=== PATIENT | female | born 1950 | race Caucasian/White ===

== ENCOUNTER 2018-07-08 18:56 | Emergency (ER) | payer MEDICARE, BC ==
[2018-07-08 19:18] VITALS: BP 149/86
--- NOTE | 2018-07-08 19:52 | EDM.PDOC ---
ED HPI GENERAL MEDICAL PROBLEM - General Chief Complaint: ENT Problem Stated Complaint: swelling to throat Time Seen by Provider: 07/08/18 19:52 - History of Present Illness INITIAL COMMENTS - FREE TEXT/NARRATIVE: 67-year-old female presents emergency room with a throat fullness. Patient is had problems with this for the last couple weeks. Patient has been cleaning the house with a lot of dust. This is thought to be contributing the patient also has underlying [place]'s esophagus is Sjogren's syndrome. Her last EEG was in March of this last year and they thought it looked good enough to put off surveillance EGDs to every 3 years. She has a lump sensation and has difficulty taking her medications at times. She is also developing some wheezing and a little bit of a nonproductive cough she denies fevers or chills in the past when she has symptoms like this usually responds favorably to Prednisone. - Related Data Allergies Allergy/AdvReac Type Severity Reaction Status Date / Time Tetanus Vaccines and Toxoid Allergy Swelling Verified 04/09/16 19:01 [Tetanus Vaccines & Toxoid] tetracycline Allergy Facial Verified 04/09/16 19:01 Swelling Home Meds: Home Meds Dexlansoprazole [Dexilant] 60 mg PO DAILY 04/09/16 [History] Loteprednol Etabonate [Lotemax] 1 drop EYEBOTH DAILY 04/09/16 [History] Ranitidine HCl [Zantac] 150 mg PO DAILY 04/09/16 [History] Zolpidem [Ambien] 10 mg PO DAILY 04/09/16 [History] Cholecalciferol (Vitamin D3) [Vitamin D3] 0 unit PO DAILY 07/08/18 [History] Lisinopril 10 mg PO DAILY 07/08/18 [History] predniSONE [Prednisone] 10 mg PO Q24H #18 tablet 07/08/18 [Rx] Past Medical History Cardiovascular History: Reports: Hypertension Respiratory History: Reports: Bronchitis, Recurrent, Pneumonia, Recurrent Gastrointestinal History: Reports: Other (See Below) Other Gastrointestinal History: barrets esophagus Musculoskeletal History: Reports: Connective Tissue Disease, Other (See Below) Other Musculoskeletal History: barretts esphagus Endocrine/Metabolic History: Reports: Other (See Below) Other Endocrine/Metabolic History: sjogren's syndrome; reynauds Social & Family History - Tobacco Use Smoking Status *Q: Never Smoker - Caffeine Use Caffeine Use: Reports: Coffee - Recreational Drug Use Recreational Drug Use: No ED ROS ENT - Review of Systems Review Of Systems: See Below Constitutional: Reports: No Symptoms HEENT: Reports: Throat Swelling. Denies: Rhinitis Respiratory: Reports: Wheezing, Cough Cardiovascular: Reports: No Symptoms Endocrine: Reports: No Symptoms GI/Abdominal: Reports: No Symptoms : Reports: No Symptoms Neurological: Reports: No Symptoms ED EXAM, ENT - Physical Exam Exam: See Below Exam Limited By: No Limitations General Appearance: Alert, No Apparent Distress Eye Exam: Bilateral Eye: Normal Inspection Ears: Normal External Exam, Normal Canal, Hearing Grossly Normal, Normal TMs Nose: Normal Inspection, Normal Mucousa, No Blood Mouth/Throat: Normal Inspection, Normal Gums, Normal Lips, Normal Oropharynx, Normal Teeth Head: Atraumatic, Normocephalic Respiratory/Chest: No Respiratory Distress, Lungs Clear, Normal Breath Sounds, No Accessory Muscle Use, Chest Non-Tender Cardiovascular: Normal Peripheral Pulses GI/Abdominal: Normal Bowel Sounds, Soft, Non-Tender Course - Vital Signs Last Recorded V/S: Last Vital Signs Temp 36.3 C 07/08/18 19:16 Pulse 73 07/08/18 19:16 Resp 20 07/08/18 19:16 BP 149/86 H 07/08/18 19:16 Pulse Ox 98 07/08/18 20:16 - Orders/Labs/Meds Orders: Active Orders 24 hr Category Date Time Status Chest 2V [CR] Stat Exams 07/08/18 20:00 Taken Meds: Medications Discontinued Medications Generic Name Dose Route Start Last Admin Trade Name Robina PRN Reason Stop Dose Admin Albuterol 8.5 gm 07/08/18 20:03 07/08/18 20:13 Proventil Hfa INH 07/08/18 20:04 2 puff ONETIME ONE Administration Prednisone 40 mg 07/08/18 19:59 07/08/18 20:07 Prednisone PO 07/08/18 20:00 40 mg ONETIME ONE Administration Ranitidine HCl 150 mg 07/08/18 19:59 07/08/18 20:10 Zantac PO 07/08/18 20:00 150 mg ONETIME ONE Administration - Re-Assessments/Exams Free Text/Narrative Re-Assessment/Exam: 07/08/18 22:50 Patient is doing a little bit better at this time but not hugely better. But she understands the prednisone take some time to work. Patient a chest x-ray done which shows no acute changes. She would like to go home at this time Departure - Departure Time of Disposition: 22:50 Disposition: Home, Self-Care 01 Clinical Impression: Sjogrens syndrome, Barretts esophagus - Discharge Information Prescriptions: predniSONE [Prednisone] 10 mg PO Q24H #18 tablet Referrals: Jaqueline Elliott [facility] [Primary Care Provider] - Forms: ED Department Discharge Additional Instructions: Return to the emergency room with any questions problems or worsening symptoms. Follow-up with your regular provider and your district sales coordinator soon as you can. Take the prednisone taper as directed. - My Orders Last 24 Hours: My Active Orders 07/08/18 20:00 Chest 2V [CR] Stat - Assessment/Plan Last 24 Hours: My Active Orders 07/08/18 20:00 Chest 2V [CR] Stat
[2018-07-08] MEDS ORDERED: predniSONE 20 MG Tab PO ONE (19:59)
[2018-07-08] MEDS ORDERED: Ranitidine 15 MG/ML Syrup 10 ML UD Cup PO ONE (19:59)
[2018-07-08] MEDS ORDERED: Albuterol 6.7 GM Inhaler INH ONE (20:03)
--- NOTE | 2018-07-09 07:05 | CR ---
Chest: Two views of the chest were obtained. Comparison: Prior chest x-ray 04/09/16. Heart size and mediastinum are within normal limits. Lungs are clear. Bony structures appear within normal limits for the patient's age. Surgical clips are noted within the upper right abdomen. Impression: 1. Incidental findings. Nothing acute is seen on two-view chest x-ray. Diagnostic code #2
== END 2018-07-08 23:04 | disposition home or self-care (01) ==
LOC: JD.ED 18:56
DX: M35.00 Sjogren syndrome, unspecified (principal); K22.70 Barrett's esophagus without dysplasia; I10 Essential (primary) hypertension; Z88.7 Allergy status to serum and vaccine; Z88.8 Allergy status to other drugs, medicaments and biological substances; Z79.899 Other long term (current) drug therapy
CPT/HCPCS: 71046; 94640; 99283; A9270

== ENCOUNTER 2021-08-27 07:18 | Inpatient (IN) | payer MEDICARE, BC ==
[2021-08-27] MEDS ORDERED: Ondansetron 4 MG/2 ML SDV IVPUSH ONE (07:58)
[2021-08-27] MEDS ORDERED: Albuterol/Ipratropium 3.0-0.5 MG/3 ML Neb Soln NEB ONE (07:58)
[2021-08-27] MEDS ORDERED: Lactated Ringers 1,000 ML IV SCH (08:00)
[2021-08-27] MEDS ORDERED: methylPREDNISolone Sodium Succinate 125 MG/2 ML SDV IVPUSH ONE (08:06)
[2021-08-27] MEDS ORDERED: Sodium Chloride 0.9% 100 ML IV SCH (09:45)
[2021-08-27] MEDS ORDERED: Iopamidol 755 Mg/ML 100 ML Bottle IVPUSH ONE (09:45)
[2021-08-27] MEDS ORDERED: Sodium Chloride 0.9% 10 ML Syringe FLUSH PRN (09:45)
[2021-08-27] MEDS ORDERED: REMDESIVIR 200 MG in Sodium Chloride 0.9% 250 ML IV ONE (12:41)
[2021-08-27] MEDS ORDERED: oxyCODONE 5 MG Tab PO PRN (12:49)
[2021-08-27] MEDS ORDERED: Albuterol/Ipratropium 3.0-0.5 MG/3 ML Neb Soln NEB PRN (12:49)
[2021-08-27] MEDS ORDERED: Acetaminophen 325 MG Tab PO PRN (12:49)
[2021-08-27] MEDS ORDERED: Docusate Sodium 100 MG Cap PO PRN (12:49)
[2021-08-27] MEDS ORDERED: Morphine 2 MG/ML SYRINGE IVPUSH PRN (12:49)
[2021-08-27] MEDS ORDERED: Ondansetron 4 MG Tab.DIS PO PRN (12:49)
[2021-08-27] MEDS ORDERED: LORazepam 1 MG Tab PO PRN (12:57)
[2021-08-27] MEDS: Dexamethasone 6 MG TABLET PO SCH (14:44)
[2021-08-27] MEDS: Lisinopril 10 MG Tab PO SCH (21:17)
[2021-08-27] MEDS: Zolpidem 10 MG Tab PO SCH (21:17)
[2021-08-28] MEDS: Pantoprazole 40 MG Tab.CR PO SCH (06:51)
[2021-08-28] MEDS: Lisinopril 10 MG Tab PO SCH ×2 (09:30→20:44)
[2021-08-28] MEDS: Cholecalciferol (Vitamin D3) 5,000 UNIT Tab PO SCH (09:30)
[2021-08-28] MEDS: Enoxaparin 40 MG/0.4 ML Syringe SUBCUT SCH (09:31)
[2021-08-28] MEDS: Dexamethasone 6 MG TABLET PO SCH (09:31)
[2021-08-28] MEDS ORDERED: REMDESIVIR 100 MG in Sodium Chloride 0.9% 250 ML IV SCH (13:00)
[2021-08-28] MEDS: Zolpidem 10 MG Tab PO SCH (20:44)
[2021-08-29] MEDS: Pantoprazole 40 MG Tab.CR PO SCH (06:30)
[2021-08-29 07:51] VITALS: BP 157/94; PULSE 74
[2021-08-29] MEDS: Lisinopril 10 MG Tab PO SCH (08:00)
[2021-08-29] MEDS: Dexamethasone 6 MG TABLET PO SCH (08:00)
[2021-08-29] MEDS: Enoxaparin 40 MG/0.4 ML Syringe SUBCUT SCH (08:02)
[2021-08-29] MEDS: Cholecalciferol (Vitamin D3) 5,000 UNIT Tab PO SCH (08:03)
[2021-08-29] MEDS ORDERED: LOTEPREDNOL EYEBOTH SCH (09:00)
== END 2021-08-29 12:00 | disposition home or self-care (01) | DRG 177 ==
LOC: JD.ED 07:18 → JD.ICU 13:19
PROVIDERS: ADMIT Internal Medicine; ATTEND Internal Medicine
PROC: XW033E5 Introduction of Remdesivir Anti-infective into Peripheral Vein, Percutaneous Approach, New Technology Group 5 (ICD-10-PCS; principal; 2021-08-27)
PROC: 3E0DX3Z Introduction of Anti-inflammatory into Mouth and Pharynx, External Approach (ICD-10-PCS; 2021-08-27)
DX: U07.1 COVID-19 (principal); J12.82 Pneumonia due to coronavirus disease 2019; R09.02 Hypoxemia; D84.9 Immunodeficiency, unspecified; M35.00 Sjogren syndrome, unspecified; M35.9 Systemic involvement of connective tissue, unspecified; I10 Essential (primary) hypertension; I73.00 Raynaud's syndrome without gangrene; Z88.1 Allergy status to other antibiotic agents; J40 Bronchitis, not specified as acute or chronic; Z79.899 Other long term (current) drug therapy; H54.7 Unspecified visual loss; Z87.01 Personal history of pneumonia (recurrent); K22.70 Barrett's esophagus without dysplasia; Z86.16 Personal history of COVID-19; Z86.19 Personal history of other infectious and parasitic diseases; Z88.7 Allergy status to serum and vaccine; Z94.7 Corneal transplant status
CPT/HCPCS: 36415; 71045; 71045-26; 71275; 71275-26; 80053; 82728; 83605; 83615; 83735; 84484; 85025; 85379; 86140; 94640; 96374; 96375; 99285-25; A9270-GY; J1650; J2405; J2930; J7050; J7120; J7620-GY; J8540; Q9967

== ENCOUNTER 2021-10-07 14:51 | Emergency (ER) | payer MEDICARE, BC ==
[2021-10-07] MEDS ORDERED: Lidocaine 1% 10 ML MDV ONE (14:59)
[2021-10-07 15:05] VITALS: BP 162/110; PULSE 131
[2021-10-07] MEDS ORDERED: Sodium Chloride 0.9% 1,000 ML IV STA (15:23)
[2021-10-07] MEDS ORDERED: Sodium Chloride 0.9% 10 ML Syringe FLUSH PRN (15:23)
[2021-10-07] MEDS ORDERED: Ondansetron 4 MG/2 ML SDV IVPUSH ONE (15:23)
[2021-10-07] MEDS ORDERED: Famotidine 20 MG/2 ML SDV IVPUSH ONE (15:25)
[2021-10-07] MEDS ORDERED: Sodium Chloride 0.9% 500 ML IV STA (17:52)
[2021-10-07] MEDS ORDERED: Loperamide 2 MG Cap PO ONE (20:07)
== END 2021-10-07 20:29 | disposition home or self-care (01) ==
LOC: JD.ED 14:51
DX: K52.9 Noninfective gastroenteritis and colitis, unspecified (principal); I10 Essential (primary) hypertension; Z88.7 Allergy status to serum and vaccine; Z88.1 Allergy status to other antibiotic agents
CPT/HCPCS: 36415; 80053; 81001; 83690; 85025; 86140; 96374; 96375; 99284; A9270; J2405; J3490; J7030

== ENCOUNTER 2021-10-09 16:22 | Inpatient (IN) | payer MEDICARE, BC ==
[2021-10-09] MEDS ORDERED: Dextrose 5%-Lactated Ringers 1,000 ML IV SCH (17:15)
[2021-10-09] MEDS ORDERED: Sodium Chloride 0.9% 250 ML IV SCH (19:45)
[2021-10-09] MEDS ORDERED: Metoclopramide 10 MG/2 ML SDV IVPUSH ONE (20:08)
[2021-10-09] MEDS ORDERED: Ondansetron 4 MG Tab.DIS PO PRN (20:30)
[2021-10-09] MEDS ORDERED: Acetaminophen 325 MG Tab PO PRN (20:30)
[2021-10-09] MEDS ORDERED: LORazepam 2 MG/ML SDV IV ONE (20:30)
[2021-10-09] MEDS ORDERED: Pantoprazole 40 MG Vial ONE (20:30)
[2021-10-09] MEDS ORDERED: Pantoprazole 40 MG Vial IVPUSH ONE (20:45)
[2021-10-09 20:57] LABS: HEMOGLOBIN A1C 5.9 %
[2021-10-09] MEDS: Vancomycin 250 MG Cap PO SCH (21:04)
[2021-10-09] MEDS: Potassium Chloride 10 MEQ in Premix Bag 1 BAG IV SCH ×2 (21:06→23:36)
[2021-10-09] MEDS: Dextrose 5%-0.45% NaCl 1,000 ML IV SCH (21:06)
[2021-10-09] MEDS: Zolpidem 10 MG Tab PO SCH (22:28)
[2021-10-09] MEDS: Potassium Chloride 20 MEQ Tab.ER PO SCH (22:28)
[2021-10-10] MEDS: Potassium Chloride 10 MEQ in Premix Bag 1 BAG IV SCH ×2 (01:08→02:28)
[2021-10-10] MEDS: Vancomycin 250 MG Cap PO SCH ×4 (02:28→20:31)
[2021-10-10] MEDS: Dextrose 5%-0.45% NaCl 1,000 ML IV SCH ×2 (03:52→14:42)
[2021-10-10] MEDS ORDERED: Magnesium Sulfate/Water 2 GM in Premix Bag 1 BAG IV ONE (07:24)
[2021-10-10] MEDS: Potassium Chloride 20 MEQ Tab.ER PO SCH (08:35)
[2021-10-10] MEDS: Enoxaparin 40 MG/0.4 ML Syringe SUBCUT SCH (08:36)
[2021-10-10] MEDS ORDERED: Dexamethasone 4 MG Tab PO SCH (09:00)
[2021-10-10] MEDS: Zolpidem 10 MG Tab PO SCH (20:31)
[2021-10-11] MEDS: Vancomycin 250 MG Cap PO SCH (02:43)
[2021-10-11] MEDS: Dextrose 5%-0.45% NaCl 1,000 ML IV SCH (02:44)
[2021-10-11] MEDS: Potassium Chloride 20 MEQ Tab.ER PO SCH (08:57)
[2021-10-11] MEDS: Enoxaparin 40 MG/0.4 ML Syringe SUBCUT SCH (08:57)
[2021-10-11] MEDS: Pantoprazole 40 MG Tab.CR PO SCH (10:25)
[2021-10-11] MEDS ORDERED: Calcium Carbonate 500 MG Tab.Chew PO PRN (14:24)
[2021-10-11] MEDS: Zolpidem 10 MG Tab PO SCH (21:12)
[2021-10-12 08:40] VITALS: BP 110/85; PULSE 61
[2021-10-12] MEDS: Potassium Chloride 20 MEQ Tab.ER PO SCH (08:47)
[2021-10-12] MEDS: Enoxaparin 40 MG/0.4 ML Syringe SUBCUT SCH (08:49)
[2021-10-12] MEDS: Pantoprazole 40 MG Tab.CR PO SCH (08:49)
== END 2021-10-12 13:54 | disposition home or self-care (01) | DRG 641 ==
LOC: JD.ED 16:22 → JD.MS 19:51
PROVIDERS: ADMIT Pediatrics; ATTEND Internal Medicine
DX: E87.6 Hypokalemia (principal); R19.7 Diarrhea, unspecified; H54.7 Unspecified visual loss; K52.9 Noninfective gastroenteritis and colitis, unspecified; K21.9 Gastro-esophageal reflux disease without esophagitis; I10 Essential (primary) hypertension; E86.0 Dehydration; Z88.1 Allergy status to other antibiotic agents; Z88.7 Allergy status to serum and vaccine; Z79.899 Other long term (current) drug therapy; K22.70 Barrett's esophagus without dysplasia; M35.00 Sjogren syndrome, unspecified; Z88.8 Allergy status to other drugs, medicaments and biological substances; Z86.16 Personal history of COVID-19; Z94.7 Corneal transplant status
CPT/HCPCS: 36415; 80053; 82009; 83036; 83605; 83735; 83880; 85025; 86140; 87040 ×2; 93005; J7121; 80048; 81001; 83630; 85652; 87045; 87046; 87493; 87899; 93010; 99284; A9270-GY; C9113; J1650; J2060; J2765; J3475; J3480; J7042; J8540

== ENCOUNTER 2024-04-11 05:58 | Emergency (ER) | payer MEDICARE, BC ==
[2024-04-11 06:20] VITALS: BP 153/109; PULSE 110
[2024-04-11 07:09] LABS: INFLUENZA A NAA NEGATIVE (NEGATIVE); RESPIRATORY SYNCYTIAL VIR NAA NEGATIVE (NEGATIVE)
[2024-04-11 07:29] LABS: CORONAVIRUS COVID-19 NAA POSITIVE (NEGATIVE)
[2024-04-11 07:53] LABS: BASOPHILS PERCENT AUTO 0.3 % (0.0-1.0); EOSINOPHILS PERCENT AUTO 0.3 % (0.0-6.0); HEMATOCRIT 43.1 % (37.0-47.0); HEMOGLOBIN 14.1 gm/dl (12.0-16.0); IMMATURE GRAN ABSOLUTE AUTO 0.05 K/mm3 (0.00-0.05); IMMATURE GRAN PERCENT AUTO 0.4 % (0.0-0.4); LYMPHOCYTES ABSOLUTE AUTO 0.9 K/mm3 (1.0-4.8); LYMPHOCYTES PERCENT AUTO 6.8 % (24.0-44.0); MEAN CORPUSCULAR HEMOGLOBIN 29.6 pg (28.0-32.0); MEAN CORPUSCULAR HGB CONC 32.7 g/dl (32.0-36.0); MEAN CORPUSCULAR VOLUME 90.4 fl (83.0-99.0); MEAN PLATELET VOLUME 10.4 fl (9.4-12.3); MONOCYTES ABSOLUTE AUTO 1.1 K/mm3 (0.0-0.8); NEUTROPHILS ABSOLUTE AUTO 11.7 K/mm3 (1.8-7.7); NEUTROPHILS PERCENT AUTO 84.2 % (41.0-71.0); PLATELET COUNT,PLT 301 K/mm3 (150-400); RED BLOOD CELL COUNT 4.77 M/mm3 (4.10-5.30)
[2024-04-11] MEDS: Sodium Chloride 0.9% 500 ML IV ONE (08:06)
[2024-04-11] MEDS: Sodium Chloride 0.9% 10 ML Syringe FLUSH PRN (08:07)
[2024-04-11 08:22] LABS: A/G RATIO 0.8 (1-2); ALBUMIN 3.2 g/dl (3.4-5.0); ANION GAP 11.1 (5-15); BILIRUBIN TOTAL 0.7 mg/dL (0.2-1.0); BUN/CREATININE RATIO 12.9 (14-18); CALCIUM 9.1 mg/dL (8.5-10.1); CREATININE 0.7 mg/dL (0.55-1.02); EST CRCL DRUG DOSING (CG) 52.95 mL/min; POTASSIUM,K 4.1 mEq/L (3.5-5.1); PROTEIN TOTAL,TP 7.1 g/dl (6.4-8.2)
== END 2024-04-11 10:34 | disposition home or self-care (01) ==
LOC: JD.ED 05:58
DX: U07.1 COVID-19 (principal); R07.9 Chest pain, unspecified; I10 Essential (primary) hypertension; E66.9 Obesity, unspecified; Z86.16 Personal history of COVID-19; Z79.899 Other long term (current) drug therapy; Z88.1 Allergy status to other antibiotic agents; Z88.7 Allergy status to serum and vaccine
CPT/HCPCS: 0241U; 36415; 71045; 80053; 83880; 84484; 85025; 93005; 96360; 99285; J3490; J7030

== ENCOUNTER 2024-04-26 10:14 | Emergency (ER) | payer MEDICARE, BC ==
[2024-04-26 10:28] VITALS: PULSE 74
[2024-04-26 10:30] VITALS: BP 134/74
[2024-04-26] MEDS ORDERED: Sodium Chloride 0.9% 10 ML Syringe FLUSH PRN (11:20)
[2024-04-26 12:33] LABS: BASOPHILS ABSOLUTE AUTO 0.1 K/mm3 (0.0-0.2); BASOPHILS PERCENT AUTO 0.5 % (0.0-1.0); EOSINOPHILS ABSOLUTE AUTO 0.1 K/mm3 (0.0-0.4); EOSINOPHILS PERCENT AUTO 0.9 % (0.0-6.0); HEMATOCRIT 43.2 % (37.0-47.0); HEMOGLOBIN 14.1 gm/dl (12.0-16.0); IMMATURE GRAN ABSOLUTE AUTO 0.06 K/mm3 (0.00-0.05); IMMATURE GRAN PERCENT AUTO 0.5 % (0.0-0.4); LYMPHOCYTES ABSOLUTE AUTO 1.7 K/mm3 (1.0-4.8); LYMPHOCYTES PERCENT AUTO 14.9 % (24.0-44.0); MEAN CORPUSCULAR HGB CONC 32.6 g/dl (32.0-36.0); MEAN CORPUSCULAR VOLUME 88.9 fl (83.0-99.0); MONOCYTES ABSOLUTE AUTO 0.9 K/mm3 (0.0-0.8); MONOCYTES PERCENT AUTO 8.2 % (0.0-8.0); NEUTROPHILS ABSOLUTE AUTO 8.3 K/mm3 (1.8-7.7); RED BLOOD CELL COUNT 4.86 M/mm3 (4.10-5.30); WHITE BLOOD CELL COUNT,WBC 11.04 K/mm3 (3.9-11.3)
[2024-04-26 12:46] LABS: PLATELET COUNT,PLT 378 K/mm3 (150-400)
[2024-04-26 13:18] LABS: A/G RATIO 0.9 (1-2); ALBUMIN 3.2 g/dl (3.4-5.0); ANION GAP 13.1 (5-15); BILIRUBIN TOTAL 0.7 mg/dL (0.2-1.0); BUN/CREATININE RATIO 18.3 (14-18); C-REACTIVE PROTEIN 0.99 mg/dL (<0.30); CALCIUM 9.1 mg/dL (8.5-10.1); CREATININE 0.6 mg/dL (0.55-1.02); EST CRCL DRUG DOSING (CG) 61.77 mL/min; POTASSIUM,K 4.1 mEq/L (3.5-5.1); PROTEIN TOTAL,TP 6.9 g/dl (6.4-8.2)
[2024-04-26] MEDS: Sodium Chloride 0.9% 1,000 ML IV STA (13:38)
== END 2024-04-26 14:27 | disposition home or self-care (01) ==
LOC: JD.ED 10:14
DX: J01.90 Acute sinusitis, unspecified (principal); R42 Dizziness and giddiness; I10 Essential (primary) hypertension; K21.9 Gastro-esophageal reflux disease without esophagitis; E66.9 Obesity, unspecified; Z86.16 Personal history of COVID-19; Z79.899 Other long term (current) drug therapy; Z88.0 Allergy status to penicillin; Z88.1 Allergy status to other antibiotic agents; Z88.7 Allergy status to serum and vaccine
CPT/HCPCS: 36415; 71046; 71046-26; 80053; 84484; 85025; 86140; 93005; 93010; 99283; 99284

== ENCOUNTER 2024-08-03 07:35 | Day surgery (SDC) | payer MEDICARE, BC ==
[~2024-08-03 07:35] MED LIST: Sodium Chloride 0.9% 10 ML Syringe FLUSH PRN; Sodium Chloride 0.9% 10 ML Syringe FLUSH SCH
[2024-08-03] MEDS: Lactated Ringers 1,000 ML IV SCH (07:45)
[2024-08-03] MEDS: Acetaminophen 325 MG Tab PO ONE ×2 (08:24→14:46)
[2024-08-03] MEDS: oxyCODONE ER 10 MG TAB.ER PO ONE (08:24)
[2024-08-03] MEDS: Pregabalin 25 MG Cap PO ONE (08:25)
[2024-08-03] MEDS ORDERED: HYDROmorphone 0.5 MG/0.5 ML Syringe IVPUSH PRN (08:35)
[2024-08-03] MEDS ORDERED: Ondansetron 4 MG/2 ML SDV IVPUSH PRN (08:35)
[2024-08-03] MEDS ORDERED: Midazolam 1 MG/ML 2 ML SDV ONE (08:35)
[2024-08-03] MEDS ORDERED: fentaNYL 100 MCG/2 ML SDV IVPUSH PRN (08:35)
[2024-08-03] MEDS ORDERED: Lactated Ringers 1,000 ML ONE (08:35)
[2024-08-03] MEDS ORDERED: ceFAZolin 2 GM Vial ONE (08:35)
[2024-08-03] MEDS ORDERED: Phenylephrine 1% 10 MG/ML SDV ONE (08:40)
[2024-08-03] MEDS ORDERED: Ropivacaine 0.5% 5 MG/ML 30 ML SDV ONE (08:40)
[2024-08-03] MEDS ORDERED: Lidocaine 1% 2 ML ONE (09:35)
[2024-08-03] MEDS: Morphine 8 MG, EPINEPHrine 0.3 MG, Cefuroxime 750 MG, Ketorolac 30 MG, Sodium Chloride ... PRN (10:08)
[2024-08-03] MEDS ORDERED: Dexamethasone 4 MG/ML 5 ML MDV ONE (10:09)
[2024-08-03] MEDS ORDERED: Ketorolac 15 MG/ML SDV ONE (10:09)
[2024-08-03] MEDS: Tranexamic Acid 1,000 MG/10 ML Vial ONE (10:14)
[2024-08-03] MEDS: VANCOmycin 1 GM SDV ONE (10:14)
[2024-08-03] MEDS: oxyCODONE 5 MG Tab PO PRN (11:48)
[2024-08-03 15:11] VITALS: PULSE 71
[2024-08-03 16:24] VITALS: BP 134/76
== END 2024-08-03 15:49 | disposition home or self-care (01) ==
LOC: JD.SDS 07:35
PROVIDERS: ATTEND Orthopaedic Surgery
DX: M17.11 Unilateral primary osteoarthritis, right knee (principal); I10 Essential (primary) hypertension; E78.5 Hyperlipidemia, unspecified; K21.9 Gastro-esophageal reflux disease without esophagitis; M35.00 Sjogren syndrome, unspecified; Z79.899 Other long term (current) drug therapy; Z88.8 Allergy status to other drugs, medicaments and biological substances; Z88.0 Allergy status to penicillin
CPT/HCPCS: 0055T; 27447; 64447; 73560; 97116; 97161; 97530; A9270; C1713; C1776; J0171; J0690; J0697; J1100; J1885; J2250; J2272; J2371; J2795; J7120; 01400; 99100; J3490

== ENCOUNTER 2024-08-05 12:56 | Emergency (ER) | payer MEDICARE, BC ==
[2024-08-05 13:16] VITALS: BP 136/46; PULSE 85
[2024-08-05] MEDS: Ondansetron 4 MG/2 ML SDV IVPUSH ONE (14:31)
[2024-08-05] MEDS: Sodium Chloride 0.9% 1,000 ML IV ONE (14:31)
[2024-08-05 14:32] LABS: BASOPHILS ABSOLUTE AUTO 0.1 K/mm3 (0.0-0.2); BASOPHILS PERCENT AUTO 0.4 % (0.0-1.0); EOSINOPHILS PERCENT AUTO 0.3 % (0.0-6.0); HEMATOCRIT 41.5 % (37.0-47.0); HEMOGLOBIN 13.2 gm/dl (12.0-16.0); IMMATURE GRAN ABSOLUTE AUTO 0.12 K/mm3 (0.00-0.05); LYMPHOCYTES ABSOLUTE AUTO 1.8 K/mm3 (1.0-4.8); LYMPHOCYTES PERCENT AUTO 16.1 % (24.0-44.0); MEAN CORPUSCULAR HEMOGLOBIN 29.6 pg (28.0-32.0); MEAN CORPUSCULAR HGB CONC 31.8 g/dl (32.0-36.0); MEAN PLATELET VOLUME 11.2 fl (9.4-12.3); MONOCYTES ABSOLUTE AUTO 1.5 K/mm3 (0.0-0.8); MONOCYTES PERCENT AUTO 12.7 % (0.0-8.0); NEUTROPHILS PERCENT AUTO 69.5 % (41.0-71.0); PLATELET COUNT,PLT 282 K/mm3 (150-400); RED BLOOD CELL COUNT 4.46 M/mm3 (4.10-5.30); WHITE BLOOD CELL COUNT,WBC 11.45 K/mm3 (3.9-11.3)
[2024-08-05 15:02] LABS: A/G RATIO 0.9 (1-2); ALBUMIN 2.8 g/dl (3.4-5.0); ANION GAP 9.2 (5-15); BILIRUBIN TOTAL 0.8 mg/dL (0.2-1.0); CALCIUM 8.9 mg/dL (8.5-10.1); CREATININE 0.5 mg/dL (0.55-1.02); EST CRCL DRUG DOSING (CG) 74.13 mL/min; PROTEIN TOTAL,TP 5.9 g/dl (6.4-8.2)
[2024-08-05 15:12] LABS: POTASSIUM,K 4.2 mEq/L (3.5-5.1)
== END 2024-08-05 16:49 | disposition home or self-care (01) ==
LOC: JD.ED 12:56
DX: E86.0 Dehydration (principal); I10 Essential (primary) hypertension; K21.9 Gastro-esophageal reflux disease without esophagitis; E66.9 Obesity, unspecified; Z86.16 Personal history of COVID-19; Z79.899 Other long term (current) drug therapy; Z79.52 Long term (current) use of systemic steroids; Z88.0 Allergy status to penicillin; Z88.7 Allergy status to serum and vaccine; Z88.1 Allergy status to other antibiotic agents; Z68.33 Body mass index [BMI] 33.0-33.9, adult
CPT/HCPCS: 36415; 80053; 85025; 96361; 96374; 99284; J2405; J7030

== ENCOUNTER 2024-09-04 19:03 | Emergency (ER) | payer MEDICARE, BC ==
[2024-09-04 19:27] VITALS: BP 157/73; PULSE 98
[2024-09-04 19:40] LABS: APPEARANCE,URINE TURBID (Clear); BILIRUBIN,URINE 1+ (Negative); COLOR,URINE YELLOW (Yellow); GLUCOSE,URINE NEGATIVE (Negative); KETONES,URINE TRACE (Negative); LEUKOCYTE ESTERASE,URINE TRACE (Negative); NITRITE,URINE NEGATIVE (Negative); OCCULT BLOOD,URINE 2+ (Negative); PH,URINE 5.5 (5.0-8.0); PROTEIN,URINE 1+ (Negative); UROBILINOGEN,URINE 0.2 (0.2-1.0)
[2024-09-04] MEDS ORDERED: cefTRIAXone 2 GM, Lidocaine 1% 4.2 ML IM ONE (19:59)
[2024-09-04 20:06] LABS: BACTERIA,URINE FEW /hpf (FEW); EPITHELIAL CELLS,URINE 0-5 /hpf (0-5); MUCUS,URINE FEW /hpf (FEW); WBC,URINE 40-50 /hpf (0-5)
[2024-09-04 20:07] LABS: AMORPHOUS SEDIMENT,URINE MANY /hpf (NOT SEEN)
[2024-09-04] MEDS: Phenazopyridine 95 MG Tab PO STA (20:12)
[2024-09-04] MEDS: cefTRIAXone 2 GM Vial IVPUSH ONE (20:47)
[2024-09-04] MEDS: cefTRIAXone 2 GM, Lidocaine 1% 4.2 ML IM ONE (21:16)
[2024-09-05] MEDS ORDERED: Phenazopyridine 95 MG Tab PO ONE (19:59)
== END 2024-09-04 21:35 | disposition home or self-care (01) ==
LOC: JD.ED 19:03
DX: N39.0 Urinary tract infection, site not specified (principal); I10 Essential (primary) hypertension; Z88.0 Allergy status to penicillin; Z88.7 Allergy status to serum and vaccine; Z88.8 Allergy status to other drugs, medicaments and biological substances; Z79.899 Other long term (current) drug therapy; Z86.16 Personal history of COVID-19
CPT/HCPCS: 81001; 87086; 96374; 99284; A9270; J0696; 87088; 87186; 99283

== ENCOUNTER 2024-09-06 16:22 | Emergency (ER) | payer MEDICARE, BC ==
[2024-09-06] MEDS ORDERED: Sodium Chloride 0.9% 10 ML Syringe FLUSH PRN (16:51)
[2024-09-06 17:16] LABS: APPEARANCE,URINE CLEAR (Clear); BILIRUBIN,URINE 1+ (Negative); COLOR,URINE DARK YELLOW (Yellow); GLUCOSE,URINE TRACE (Negative); KETONES,URINE 1+ (Negative); LEUKOCYTE ESTERASE,URINE TRACE (Negative); NITRITE,URINE POSITIVE (Negative); OCCULT BLOOD,URINE NEGATIVE (Negative); PROTEIN,URINE 2+ (Negative)
[2024-09-06 17:28] LABS: BACTERIA,URINE FEW /hpf (FEW); EPITHELIAL CELLS,URINE 0-5 /hpf (0-5); HYALINE CASTS,URINE 0-5 /lpf (0-5); MUCUS,URINE MANY /hpf (FEW); RBC,URINE 0-5 /hpf (0-5); WBC,URINE 0-5 /hpf (0-5)
[2024-09-06 18:13] LABS: A/G RATIO 0.9 (1-2); ALBUMIN 3.2 g/dl (3.4-5.0); ANION GAP 13.2 (5-15); BILIRUBIN TOTAL 0.4 mg/dL (0.2-1.0); BUN/CREATININE RATIO 18.3 (14-18); C-REACTIVE PROTEIN 1.67 mg/dL (<0.30); CALCIUM 9.3 mg/dL (8.5-10.1); CREATININE 0.6 mg/dL (0.55-1.02); EST CRCL DRUG DOSING (CG) 61.77 mL/min; POTASSIUM,K 4.2 mEq/L (3.5-5.1); PROTEIN TOTAL,TP 6.8 g/dl (6.4-8.2)
[2024-09-06 18:18] LABS: LACTIC ACID 0.9 mmol/L (0.4-2.0)
[2024-09-06 18:29] LABS: BASOPHILS ABSOLUTE AUTO 0.1 K/mm3 (0.0-0.2); BASOPHILS PERCENT AUTO 0.7 % (0.0-1.0); EOSINOPHILS ABSOLUTE AUTO 0.2 K/mm3 (0.0-0.4); EOSINOPHILS PERCENT AUTO 1.6 % (0.0-6.0); HEMATOCRIT 37.8 % (37.0-47.0); HEMOGLOBIN 12.5 gm/dl (12.0-16.0); IMMATURE GRAN ABSOLUTE AUTO 0.05 K/mm3 (0.00-0.05); IMMATURE GRAN PERCENT AUTO 0.5 % (0.0-0.4); LYMPHOCYTES ABSOLUTE AUTO 2.2 K/mm3 (1.0-4.8); LYMPHOCYTES PERCENT AUTO 20.7 % (24.0-44.0); MEAN CORPUSCULAR HEMOGLOBIN 29.4 pg (28.0-32.0); MEAN CORPUSCULAR HGB CONC 33.1 g/dl (32.0-36.0); MEAN PLATELET VOLUME 10.9 fl (9.4-12.3); MONOCYTES ABSOLUTE AUTO 1.2 K/mm3 (0.0-0.8); MONOCYTES PERCENT AUTO 10.9 % (0.0-8.0); NEUTROPHILS PERCENT AUTO 65.6 % (41.0-71.0); RED BLOOD CELL COUNT 4.25 M/mm3 (4.10-5.30); WHITE BLOOD CELL COUNT,WBC 10.59 K/mm3 (3.9-11.3)
[2024-09-06 18:32] LABS: MEAN CORPUSCULAR VOLUME 88.9 fl (83.0-99.0); PLATELET COUNT,PLT 414 K/mm3 (150-400)
[2024-09-06] MEDS: Sodium Chloride 0.9% 10 ML Syringe FLUSH ONE (18:48)
[2024-09-06] MEDS: Iopamidol 612 MG/ML 100 ML Bottle IVPUSH ONE (18:48)
[2024-09-06] MEDS: Sodium Chloride 0.9% 100 ML IV SCH (18:49)
[2024-09-06] MEDS: Levofloxacin/Dextrose 5%-Water 750 MG in Premix Bag 1 BAG IV ONE (19:25)
[2024-09-06] MEDS ORDERED: Sodium Chloride 0.9% 500 ML IV SCH (20:00)
[2024-09-06 21:06] VITALS: BP 140/85; PULSE 85
== END 2024-09-06 21:09 | disposition home or self-care (01) ==
LOC: JD.ED 16:22
DX: N30.00 Acute cystitis without hematuria (principal); I10 Essential (primary) hypertension; E66.9 Obesity, unspecified; Z68.33 Body mass index [BMI] 33.0-33.9, adult; Z86.16 Personal history of COVID-19; Z88.1 Allergy status to other antibiotic agents; Z88.7 Allergy status to serum and vaccine; Z88.8 Allergy status to other drugs, medicaments and biological substances; Z91.048 Other nonmedicinal substance allergy status; Z79.899 Other long term (current) drug therapy
CPT/HCPCS: 36415; 74177; 80053; 81001; 83605; 85025; 86140; 87086; 96365; 96366; 99284; J1956; Q9967

== ENCOUNTER 2024-09-07 11:00 | Inpatient (IN) | payer MEDICARE, BC ==
[~2024-09-07 11:00] MED LIST changes: +Enoxaparin 40 MG/0.4 ML Syringe SUBCUT SCH; -Sodium Chloride 0.9% 10 ML Syringe FLUSH PRN; -Sodium Chloride 0.9% 10 ML Syringe FLUSH SCH
[2024-09-07] MEDS ORDERED: Sodium Chloride 0.9% 10 ML Syringe FLUSH PRN (11:24)
[2024-09-07 12:24] LABS: BASOPHILS PERCENT AUTO 0.4 % (0.0-1.0); EOSINOPHILS ABSOLUTE AUTO 0.1 K/mm3 (0.0-0.4); EOSINOPHILS PERCENT AUTO 1.3 % (0.0-6.0); HEMATOCRIT 35.2 % (37.0-47.0); HEMOGLOBIN 11.5 gm/dl (12.0-16.0); IMMATURE GRAN ABSOLUTE AUTO 0.03 K/mm3 (0.00-0.05); IMMATURE GRAN PERCENT AUTO 0.3 % (0.0-0.4); LYMPHOCYTES ABSOLUTE AUTO 1.7 K/mm3 (1.0-4.8); LYMPHOCYTES PERCENT AUTO 15.9 % (24.0-44.0); MEAN CORPUSCULAR HEMOGLOBIN 28.8 pg (28.0-32.0); MEAN CORPUSCULAR HGB CONC 32.7 g/dl (32.0-36.0); MEAN PLATELET VOLUME 10.1 fl (9.4-12.3); MONOCYTES ABSOLUTE AUTO 1.1 K/mm3 (0.0-0.8); MONOCYTES PERCENT AUTO 10.1 % (0.0-8.0); NEUTROPHILS ABSOLUTE AUTO 7.6 K/mm3 (1.8-7.7); PLATELET COUNT,PLT 389 K/mm3 (150-400); WHITE BLOOD CELL COUNT,WBC 10.51 K/mm3 (3.9-11.3)
[2024-09-07 12:31] LABS: APPEARANCE,URINE CLEAR (Clear); BILIRUBIN,URINE NEGATIVE (Negative); COLOR,URINE YELLOW (Yellow); GLUCOSE,URINE NEGATIVE (Negative); KETONES,URINE NEGATIVE (Negative); LEUKOCYTE ESTERASE,URINE NEGATIVE (Negative); NITRITE,URINE POSITIVE (Negative); OCCULT BLOOD,URINE NEGATIVE (Negative); PROTEIN,URINE NEGATIVE (Negative); UROBILINOGEN,URINE 0.2 (0.2-1.0)
[2024-09-07 12:37] LABS: BACTERIA,URINE FEW /hpf (FEW); MUCUS,URINE MODERATE /hpf (FEW); RBC,URINE 0-5 /hpf (0-5); SQUAMOUS EPITHELIAL CELLS,UR 0-5 /hpf (0-5); WBC,URINE 0-5 /hpf (0-5)
[2024-09-07 12:51] LABS: A/G RATIO 0.9 (1-2); ALBUMIN 2.8 g/dl (3.4-5.0); ANION GAP 12.6 (5-15); BILIRUBIN TOTAL 0.4 mg/dL (0.2-1.0); BUN/CREATININE RATIO 7.1 (14-18); C-REACTIVE PROTEIN 1.75 mg/dL (<0.30); CALCIUM 8.8 mg/dL (8.5-10.1); CREATININE 0.7 mg/dL (0.55-1.02); EST CRCL DRUG DOSING (CG) 52.95 mL/min; POTASSIUM,K 3.6 mEq/L (3.5-5.1); PROTEIN TOTAL,TP 6.1 g/dl (6.4-8.2)
[2024-09-07 13:07] LABS: LACTIC ACID 1.2 mmol/L (0.4-2.0)
[2024-09-07] MEDS: fentaNYL 100 MCG/2 ML SDV IVPUSH ONE (13:18)
[2024-09-07] MEDS: Sodium Chloride 0.9% 1,000 ML IV SCH ×2 (13:22→18:07)
[2024-09-07] MEDS: cefTRIAXone 2 GM in Sodium Chloride 0.9% 100 ML IV ONE (13:23)
[2024-09-07] MEDS ORDERED: Ondansetron 4 MG/2 ML SDV IV PRN (15:06)
[2024-09-07] MEDS ORDERED: Docusate Sodium 100 MG Cap PO PRN (15:06)
[2024-09-07] MEDS ORDERED: Acetaminophen 325 MG Tab PO PRN (15:06)
[2024-09-07] MEDS ORDERED: Morphine 2 MG/ML SYRINGE IVPUSH PRN (15:09)
[2024-09-07] MEDS ORDERED: traMADol 50 MG Tab PO PRN (15:09)
[2024-09-07] MEDS: Ondansetron 4 MG/2 ML SDV IVPUSH ONE (16:56)
[2024-09-07] MEDS: Phenazopyridine 95 MG Tab PO SCH (18:06)
[2024-09-07] MEDS: Hypromellose 0.5% Ophth Soln 15 ML Bottle EYEBOTH SCH (20:56)
[2024-09-07] MEDS: Zolpidem 10 MG Tab PO ONE (20:56)
[2024-09-07] MEDS: Brimonidine 0.2% Ophth Soln 5 ML Bottle EYEBOTH SCH (20:56)
[2024-09-07] MEDS: Timolol Maleate 0.5% Ophth Soln 5 ML Bottle EYEBOTH SCH (20:56)
[2024-09-07] MEDS ORDERED: Non-Formulary Medication 1 Each (Cyclosporine [Restasis Multidose] 5.5 ML Drops) EYEBOTH SCH (21:00)
[2024-09-08 05:46] LABS: BASOPHILS ABSOLUTE AUTO 0.1 K/mm3 (0.0-0.2); BASOPHILS PERCENT AUTO 0.6 % (0.0-1.0); EOSINOPHILS ABSOLUTE AUTO 0.2 K/mm3 (0.0-0.4); EOSINOPHILS PERCENT AUTO 2.2 % (0.0-6.0); HEMATOCRIT 35.1 % (37.0-47.0); HEMOGLOBIN 11.4 gm/dl (12.0-16.0); IMMATURE GRAN ABSOLUTE AUTO 0.04 K/mm3 (0.00-0.05); IMMATURE GRAN PERCENT AUTO 0.5 % (0.0-0.4); LYMPHOCYTES ABSOLUTE AUTO 1.6 K/mm3 (1.0-4.8); LYMPHOCYTES PERCENT AUTO 17.8 % (24.0-44.0); MEAN CORPUSCULAR HEMOGLOBIN 28.7 pg (28.0-32.0); MEAN CORPUSCULAR HGB CONC 32.5 g/dl (32.0-36.0); MEAN CORPUSCULAR VOLUME 88.4 fl (83.0-99.0); MEAN PLATELET VOLUME 10.5 fl (9.4-12.3); MONOCYTES ABSOLUTE AUTO 0.9 K/mm3 (0.0-0.8); MONOCYTES PERCENT AUTO 10.4 % (0.0-8.0); NEUTROPHILS ABSOLUTE AUTO 6.1 K/mm3 (1.8-7.7); NEUTROPHILS PERCENT AUTO 68.5 % (41.0-71.0); PLATELET COUNT,PLT 364 K/mm3 (150-400); RED BLOOD CELL COUNT 3.97 M/mm3 (4.10-5.30); WHITE BLOOD CELL COUNT,WBC 8.82 K/mm3 (3.9-11.3)
[2024-09-08 06:06] LABS: A/G RATIO 0.9 (1-2); ALBUMIN 2.8 g/dl (3.4-5.0); ANION GAP 14.9 (5-15); BILIRUBIN TOTAL 0.4 mg/dL (0.2-1.0); C-REACTIVE PROTEIN 1.82 mg/dL (<0.30); CREATININE 0.5 mg/dL (0.55-1.02); EST CRCL DRUG DOSING (CG) 74.13 mL/min; MAGNESIUM 1.9 mg/dL (1.8-2.4); POTASSIUM,K 3.9 mEq/L (3.5-5.1)
[2024-09-08] MEDS ORDERED: Non-Formulary Medication 1 Each (Prednisolone Acetate/Pf [Prednisolone Acet 1% Eye Drop] 5 EYEBOTH SCH (09:00)
[2024-09-08] MEDS ORDERED: Non-Formulary Medication 1 Each (Cyclosporine [Restasis Multidose] 5.5 ML Drops) EYEBOTH SCH (09:00)
[2024-09-08] MEDS: Enoxaparin 40 MG/0.4 ML Syringe SUBCUT SCH (09:31)
[2024-09-08] MEDS: prednisoLONE Acetate 1% Ophth Susp 5 ML Bottle EYEBOTH SCH (09:32)
[2024-09-08] MEDS: Pantoprazole 40 MG Tab.CR PO SCH (09:32)
[2024-09-08] MEDS: OPTH EYEBOTH SCH ×2 (09:50→15:07)
[2024-09-08] MEDS: Carboxymethylcellulose Sodium 1% Ophth Gel 15 ML Bottle EYEBOTH SCH ×2 (09:50→13:21)
[2024-09-08] MEDS: Latanoprost 0.005% Ophth Soln 2.5 ML Bottle EYEBOTH SCH ×2 (09:50→17:02)
[2024-09-08] MEDS: BRIMONIDINE TIMOLOL EYEBOTH SCH ×2 (09:50→15:07)
[2024-09-08] MEDS: cefTRIAXone 2 GM Vial IVPUSH SCH (13:08)
[2024-09-08] MEDS: Calcium Carbonate 500 MG Tab.Chew PO PRN (15:07)
[2024-09-08] MEDS: Zolpidem 10 MG Tab PO SCH (21:38)
[2024-09-09 05:30] LABS: BASOPHILS ABSOLUTE AUTO 0.1 K/mm3 (0.0-0.2); BASOPHILS PERCENT AUTO 0.7 % (0.0-1.0); EOSINOPHILS ABSOLUTE AUTO 0.3 K/mm3 (0.0-0.4); EOSINOPHILS PERCENT AUTO 3.2 % (0.0-6.0); HEMATOCRIT 33.3 % (37.0-47.0); HEMOGLOBIN 11.1 gm/dl (12.0-16.0); IMMATURE GRAN ABSOLUTE AUTO 0.05 K/mm3 (0.00-0.05); IMMATURE GRAN PERCENT AUTO 0.6 % (0.0-0.4); LYMPHOCYTES ABSOLUTE AUTO 1.6 K/mm3 (1.0-4.8); LYMPHOCYTES PERCENT AUTO 18.7 % (24.0-44.0); MEAN CORPUSCULAR HEMOGLOBIN 29.1 pg (28.0-32.0); MEAN CORPUSCULAR HGB CONC 33.3 g/dl (32.0-36.0); MEAN CORPUSCULAR VOLUME 87.2 fl (83.0-99.0); MEAN PLATELET VOLUME 10.7 fl (9.4-12.3); MONOCYTES PERCENT AUTO 11.5 % (0.0-8.0); NEUTROPHILS ABSOLUTE AUTO 5.5 K/mm3 (1.8-7.7); NEUTROPHILS PERCENT AUTO 65.3 % (41.0-71.0); PLATELET COUNT,PLT 361 K/mm3 (150-400); RED BLOOD CELL COUNT 3.82 M/mm3 (4.10-5.30); WHITE BLOOD CELL COUNT,WBC 8.44 K/mm3 (3.9-11.3)
[2024-09-09 05:51] LABS: A/G RATIO 0.8 (1-2); ALBUMIN 2.7 g/dl (3.4-5.0); ANION GAP 10.4 (5-15); BILIRUBIN TOTAL 0.3 mg/dL (0.2-1.0); BUN/CREATININE RATIO 13.3 (14-18); C-REACTIVE PROTEIN 2.2 mg/dL (<0.30); CALCIUM 8.9 mg/dL (8.5-10.1); CREATININE 0.6 mg/dL (0.55-1.02); EST CRCL DRUG DOSING (CG) 61.77 mL/min; POTASSIUM,K 3.4 mEq/L (3.5-5.1); PROTEIN TOTAL,TP 5.9 g/dl (6.4-8.2)
[2024-09-09] MEDS: Polyethylene Glycol 3350 Powder 17 GM Packet PO PRN (08:17)
[2024-09-09] MEDS: Potassium Chloride 20 MEQ Tab.ER PO ONE (08:18)
[2024-09-09] MEDS: Potassium Bicarbonate/Cit Ac 20 MEQ Effervescent Tab PO ONE (08:29)
[2024-09-09 14:07] VITALS: BP 157/99; PULSE 108
[2024-09-09] MEDS ORDERED: Zolpidem 10 MG Tab PO SCH (21:00)
== END 2024-09-09 12:21 | disposition home or self-care (01) | DRG 690 ==
LOC: JD.ED 11:00 → JD.MS 13:14
PROVIDERS: ADMIT Family Medicine; ATTEND Family Medicine
DX: N30.00 Acute cystitis without hematuria (principal); N39.0 Urinary tract infection, site not specified; E87.1 Hypo-osmolality and hyponatremia; Z91.048 Other nonmedicinal substance allergy status; Z88.0 Allergy status to penicillin; Z96.642 Presence of left artificial hip joint; E86.0 Dehydration; K21.9 Gastro-esophageal reflux disease without esophagitis; M35.00 Sjogren syndrome, unspecified; H54.7 Unspecified visual loss; I10 Essential (primary) hypertension; E66.9 Obesity, unspecified; F15.90 Other stimulant use, unspecified, uncomplicated; I73.00 Raynaud's syndrome without gangrene; E87.8 Other disorders of electrolyte and fluid balance, not elsewhere classified; K22.719 Barrett's esophagus with dysplasia, unspecified; Z96.651 Presence of right artificial knee joint; Z88.1 Allergy status to other antibiotic agents; Z88.7 Allergy status to serum and vaccine; Z87.01 Personal history of pneumonia (recurrent); Z86.16 Personal history of COVID-19; Z78.9 Other specified health status; Z88.8 Allergy status to other drugs, medicaments and biological substances; Z91.09 Other allergy status, other than to drugs and biological substances; Z79.899 Other long term (current) drug therapy
CPT/HCPCS: 36415; 51798; 80053; 81001; 83605; 83735; 85025; 86140; 87086; 93005; 93010; 97116-GP; 97161-GP; 99285; A9270-GY; J0696; J1650; J3010; J3490; J7030

== ENCOUNTER 2025-01-28 18:42 | Emergency (ER) | payer MEDICARE, BC ==
[2025-01-28 18:54] VITALS: BP 167/84; PULSE 72
[2025-01-28] MEDS ORDERED: Sodium Chloride 0.9% 10 ML Syringe FLUSH PRN (19:08)
[2025-01-28] MEDS ORDERED: Naloxone 0.4 MG/ML SDV IVPUSH PRN (19:13)
[2025-01-28] MEDS: Acetaminophen/HYDROcodone 325-5 MG Tab PO ONE (21:30)
== END 2025-01-28 21:38 | disposition home or self-care (01) ==
LOC: JD.ED 18:42
DX: S42.215A Unspecified nondisplaced fracture of surgical neck of left humerus, initial encounter for closed fracture (principal); I10 Essential (primary) hypertension; Z91.048 Other nonmedicinal substance allergy status; Z88.8 Allergy status to other drugs, medicaments and biological substances; Z88.7 Allergy status to serum and vaccine; Z79.899 Other long term (current) drug therapy; Z86.16 Personal history of COVID-19; W18.39XA Other fall on same level, initial encounter; Y93.89 Activity, other specified
CPT/HCPCS: 70450; 73030; 96372; 99284; A9270; J1171